=== PATIENT | male | born 1960 | race Caucasian/White ===

== ENCOUNTER 2018-03-05 05:35 | Day surgery (SDC) | payer OTHER ==
[~2018-03-05] VITALS: Ht 185.4 cm; Wt 75.0 kg
[2018-03-05] MEDS ORDERED: EMTR1TAB14 PO (06:12)
[2018-03-05] MEDS ORDERED: DOLU50TA PO (06:12)
[2018-03-05 06:13] VITALS: BP 120/78
[2018-03-05] MEDS ORDERED: LACTATED RINGERS 1,000 ML IV SCH (06:17)
[2018-03-05] MEDS ORDERED: BUPIVACAINE LIPOSOME/PF 10ML INFIL ONE (06:44)
[2018-03-05 06:56] LABS: BASOPHILS # (AUTO) 0.03 x10^3/uL (0-0.1); BASOPHILS % (AUTO) 1 % (0-1); EOSINOPHILS # (AUTO) 0.12 x10^3/uL (0-0.4); EOSINOPHILS % (AUTO) 3 % (1-7); LYMPHOCYTES # (AUTO) 1.48 x10^3/uL (1-3.4); LYMPHOCYTES % (AUTO) 32 % (22-44); MD NO; MEAN CORPUSCULAR HGB CONC 34.4 g/dL (33.2-36.2); MEAN CORPUSCULAR VOLUME 96.1 fL (81-97); MEAN PLATELET VOLUME 7.9 fL (7.4-10.4); MONOCYTES # (AUTO) 0.44 x10^3/uL (0.2-0.8); MONOCYTES % (AUTO) 10 % (2-9); NEUTROPHILS % (AUTO) 56 % (42-75); PLATELET COUNT 214 x10^3/uL (130-400); RED BLOOD COUNT 4.44 x10^6/uL (4.38-5.82); RED CELL DISTRIBUTION WIDTH 12.3 % (9.4-14.8)
[2018-03-05] MEDS ORDERED: BUPIVACAINE/PF 0.5% ONE (06:57)
[2018-03-05 07:05] LABS: ALANINE AMINOTRANSFERASE 32 U/L (12-78); ALBUMIN 4.2 g/dL (3.4-5.0); ANION GAP 8 mmol/L (5-15); CHLORIDE 111 mmol/L (98-107); CREATININE 1.28 mg/dL (0.7-1.3)
[2018-03-05 07:07] LABS: ALKALINE PHOSPHATASE 82 U/L (45-117); BILIRUBIN,TOTAL 0.4 mg/dL (0.2-1.0); TOTAL PROTEIN 7.6 g/dL (6.4-8.2)
[2018-03-05] MEDS ORDERED: MIDAZOLAM 1 MG/ML, 2ML ONE (07:14)
[2018-03-05] MEDS ORDERED: FENTANYL PF 100 MCG/2ML ONE (07:14)
[2018-03-05] MEDS ORDERED: CEFOTETAN 2 GM ONE (07:28)
[2018-03-05] MEDS ORDERED: ONDANSETRON 2MG/ML, 2ML ONE (07:28)
[2018-03-05] MEDS ORDERED: DEXAMETHASONE 4 MG/ML, 1ML ONE (07:28)
[2018-03-05] MEDS ORDERED: PROPOFOL 10 MG/ML, 20ML ONE (07:28)
[2018-03-05] MEDS ORDERED: SUCCINYLCHOLINE 20 MG/ML, 10ML ONE (07:28)
[2018-03-05] MEDS ORDERED: ALBUTEROL SULFATE 2.5 MG/3 ML NPPB PRN (08:00)
[2018-03-05] MEDS ORDERED: MEPERIDINE/PF 25MG/0.5ML IVPush PRN (08:00)
[2018-03-05] MEDS ORDERED: HYDROmorphone 2 MG/ML, 1ML IVPush PRN (08:00)
[2018-03-05] MEDS ORDERED: hydrALAzine 20 MG/ML, 1ML IV PRN (08:00)
[2018-03-05] MEDS ORDERED: PROMETHAZINE 25 MG/ML, 1ML IV PRN (08:00)
[2018-03-05] MEDS ORDERED: KETOROLAC 30 MG/1 ML IV PRN (08:00)
[2018-03-05] MEDS ORDERED: ACETAMINOPHEN 325 MG TABLET PO PRN (08:00)
[2018-03-05] MEDS ORDERED: OXYcodone 5 MG/5 ML ORAL.SOL UDC PO PRN (08:00)
[2018-03-05] MEDS ORDERED: LABETALOL 5MG/ML, 20ML IV PRN (08:00)
[2018-03-05] MEDS ORDERED: FENTANYL PF 100 MCG/2ML IV PRN (08:00)
[2018-03-05] MEDS ORDERED: KETOROLAC 30 MG/1 ML ONE (08:28)
== END 2018-03-05 10:50 | disposition home or self-care (01) ==
LOC: OUT 05:35
PROVIDERS: ATTEND Surgery
DX: K61.1 Rectal abscess (principal); L83 Acanthosis nigricans; B20 Human immunodeficiency virus [HIV] disease; Z98.890 Other specified postprocedural states; Z87.891 Personal history of nicotine dependence
CPT/HCPCS: 36415; 46040; 80053; 85025; 88304; 88305; 93005; J0330; J1100; J1885; J2250; J2405; J2704; J3010; J3490; J7120